=== PATIENT | male | born 1995 | race Hispanic/Latino ===

== ENCOUNTER 2018-09-25 13:09 | Emergency (ER) | payer OTHER ==
[2018-09-25 13:46] VITALS: BMI 26.7
[2018-09-25] MEDS ORDERED: TDAP Vaccine 0.5 mL Syr IM ONE (13:55)
[2018-09-25 14:25] LABS: BASO # 0.02 K/mm3 (0.0-2.0); BASO % 0.2 % (0.0-3.0); EOS # 0.1 (0.0-0.7); EOS % 1.1 % (1.5-5.0); HEMOGLOBIN 14.1 g/dL (14.0-18.0); LYMPH # 2.7 (1.2-3.4); LYMPH % 32.2 % (22.0-35.0); MEAN CELL VOLUME 89.6 fl (80.0-105.0); MEAN CORPUSCULAR HEMOGLOBIN 30.1 pg (25.0-35.0); MEAN CORPUSCULAR HGB CONC 33.6 g/dl (31.0-37.0); MEAN PLATELET VOLUME 9.2 fl (7.0-11.0); MONO # 0.3 (0.1-0.6); MONO % 3.9 % (1.0-6.0); RBC 4.69 10^6/uL (3.5-6.1); RED CELL DISTRIBUTION WIDTH 12.7 % (11.5-14.5); WHITE BLOOD COUNT 8.2 10^3/uL (4.5-11.0)
[2018-09-25 14:37] LABS: ALB/GLOB RATIO 1.2 (1.1-1.8); ALBUMIN 4.5 g/dL (3.0-4.8); ALT/SGPT 43 U/L (7-56); AST/SGOT 40 U/L (17-59); BLOOD UREA NITROGEN 10 mg/dL (7-21); GFR NON-AFRICAN AMERICAN > 60
[2018-09-25 14:40] LABS: ACETAMINOPHEN < 10.0 ug/ml (10.0-20.0); SALICYLATE < 1 mg/dL (2.0-20.0)
[2018-09-25 14:48] LABS: TROPONIN I < 0.01 ng/mL
[2018-09-25 15:41] LABS: PH,URINE 6.5 (4.7-8.0); URINE BILIRUBIN NEGATIVE (NEGATIVE); URINE BLOOD NEGATIVE (NEGATIVE); URINE GLUCOSE (UA) NEGATIVE (NEGATIVE); URINE LEUKOCYTE ESTERASE NEGATIVE Leu/uL (NEGATIVE); URINE PROTEIN NEGATIVE mg/dL (<30 mg/dL); URINE UROBILINOGEN 0.2 E.U./dL (<1 E.U./dL)
[2018-09-25 16:11] LABS: URINE APPEARANCE CLEAR (CLEAR); URINE COLOR YELLOW (YELLOW)
[2018-09-25 16:13] LABS: BARBITURATES, UR NEGATIVE (NEGATIVE); BENZODIAZEPINES, UR NEGATIVE (NEGATIVE); OPIATES, UR NEGATIVE (NEGATIVE); PHENCYCLIDINE, UR NEGATIVE (NEGATIVE)
--- NOTE | 2018-09-25 16:30 | ED PDOC ---
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 Pt unwilling to tell me why he hurt himself, but has been telling family that he "does not want to be on this earth anymore" over the last few days. Admits to drinking alcohol today, denies drug use. Last suicide attempt was in May when he was admitted to [facility] for 3 days after cutting his wrists and taking pills, and discharged. Family states that patient is supposed to followup with a psychiatrist outpatient but is non compliant. Denies falls, fever, chills, chest pain, SOB, abdominal pain, N/V/D, cough, back pain, or any other associated complaints. HPI and ROS limited secondary to patient's uncooperative nature. Past Medical History - Psychiatric Hx Depression: No Hx Emotional Abuse: No Hx Physical Abuse: No Hx Substance Use: No - Suicidal Assessment Feels Threatened In Home Enviroment: No Family/Social History Family/Social History: No Known Family HX Smoking Status: Unknown If Ever Smoked Hx Alcohol Use: No Hx Substance Use: No Hx Substance Use Treatment: No Allergies/Home Meds Allergies/Adverse Reactions: Allergies No Known Allergies Allergy (Verified 07/26/12 10:07) Home Medications: Home Meds Medication Instructions Recorded Confirmed Atenolol 25 mg PO 07/26/12 07/26/12 Review of Systems - Review of Systems Constitutional: Normal. absent: Fevers Eyes: Normal. absent: Photophobia ENT: Normal. absent: Sore Throat, Sinus Congestion Respiratory: Normal. absent: SOB, Cough Cardiovascular: Normal. absent: Chest Pain, Palpitations, Syncope Gastrointestinal: Normal. absent: Abdominal Pain, Nausea, Vomiting Genitourinary Male: Normal. absent: Dysuria, Frequency Musculoskeletal: Normal. absent: Back Pain, Neck Pain Skin: Laceration Neurological: Normal. absent: Headache, Dizziness, Focal Weakness Endocrine: Normal Hemo/Lymphatic: Normal Psychiatric: Depression, Suicidal Ideation Physical Exam - Physical Exam Physical Exam Limitations: Uncooperative Vital Signs Reviewed: Yes Vital Signs Temp Pulse Resp BP Pulse Ox 09/25/18 13:12 98.2 F 100 H 18 138/77 98 Temperature: Afebrile Blood Pressure: Normal Pulse: Regular Respiratory Rate: Normal Appearance: Positive for: Well-Appearing, Non-Toxic, Comfortable Pain Distress: None Mental Status: Positive for: Alert and Oriented X 3, Agitated - Systems Exam Head: Present: Atraumatic, Normocephalic Pupils: Present: PERRL Extroacular Muscles: Present: EOMI Conjunctiva: Present: Normal Mouth: Present: Moist Mucous Membranes Neck: Present: Normal Range of Motion. No: Meningeal Signs, MIDLINE TENDERNESS, Paraspinal Tenderness Respiratory/Chest: Present: Clear to Auscultation, Good Air Exchange. No: Respiratory Distress, Accessory Muscle Use Cardiovascular: Present: Regular Rate and Rhythm, Normal S1, S2, Peripheal Pulses Present. No: Murmurs Abdomen: Present: Normal Bowel Sounds. No: Tenderness, Distention, Peritoneal Signs, Rebound, Guarding Back: Present: Normal Inspection. No: CVA Tenderness, Midline Tenderness, Paraspinal Tenderness Upper Extremity: Present: Normal ROM, NORMAL PULSES, Neurovascularly Intact, Capillary Refill < 2s, Other (4cm vertical laceration to volar wrist with minor incomplete tendon laceration; patient has FROM of all digits and is able to make a fist without difficulty. Full strength.). No: Cyanosis, Edema, Temperature Abnormalties Lower Extremity: Present: Normal Inspection, NORMAL PULSES, Normal ROM, N eurovascularly Intact, Capillary Refill < 2 s. No: Edema, Temperature Abnormalties Neurological: Present: GCS=15, CN II-XII Intact, Speech Normal, Motor Func Grossly Intact, Normal Sensory Function, Gait Normal Skin: Present: Warm, Dry, Normal Color, Laceration (left wrist, 4cm vertical laceration with tendon involvement. Small amount active bleeding. No FB or debris visualized). No: Rashes Lymphatic: No: Cervical Adenopathy Psychiatric: Present: Alert, Oriented x 3, Suicidal Ideation Medical Decision Making ED Course and Treatment: Initial Plan: * CBC, CMP * Alcohol, Salicylate, Acetaminophen * Troponin * EKG * CXR * PES Eval * Tdap * Lac repair * 1:1 Alcohol 293 Labs otherwise unremarkable EKG shows incomplete LBBB, last EKG is from 2011. Troponin negative. Pt asymptomatic. Dr. Merida aware, no acute intervention. 14:[address] Baltazar regarding laceration. Advises to close skin layer and instruct patient to followup within [address] merida aware of conversation and agrees with plan. 15:45 Patient attempted to elope from emergency department, attempt to attack staff. Code muniz called. Restraints ordered for patient safety and risk for elopement. 16:10 Patient calm and comfortable in restraints. Pending sobriety for PES evaluation. 17:00 Patient continues to be uncooperative for laceration repair. Continuously pulling arm away when touched. Will order sedation for patient and provider safety. Sedation ordered for patient safety secondary to agitation. 5mg Haldol, 2mg Ativan. 19:00 Laceration repaired with 6 sutures simple interrupted, 3-0 nylon. Wound edges well approximated and hemostasis achieved. Pt tolerated procedure well.Wound dressed with bacitracin and sterile non stick dressing by EMT. 19:33 Restraint order revised to 2 point restraints for sitter and patient safety. Patient resting comfortably in stretcher, mild agitation when aroused. States he "does not want to be here". 20:00 Patient care signed out to Benoit Garcia PA-C pending CXR, PES evaluation and disposition. Sutures will need removed in 10-14 days with earlier return for signs of infection including worsening pain, redness, swelling, tenderness. Patient will need to continue Keflex q6h x 1 week and followup with Dr. Baltazar within 2 weeks for revision of laceration repair secondary to tendon involvement. Patient sleeping soundly in stretcher at this time with stable vital signs. 1:[address] - Lab Interpretations Lab Results: Troponin I < 0.01 ng/mL 09/25/18 14:11 Total Bilirubin 0.2 mg/dL (0.2-1.3) 09/25/18 14:11 AST 40 U/L (17-59) 09/25/18 14:11 ALT 43 U/L (7-56) 09/25/18 14:11 Alkaline Phosphatase 137 U/L (38-126) H 09/25/18 14:11 Total Protein 8.4 g/dL (5.8-8.3) H 09/25/18 14:11 Albumin 4.5 g/dL (3.0-4.8) 09/25/18 14:11 Globulin 3.9 gm/dL 09/25/18 14:11 Albumin/Globulin Ratio 1.2 (1.1-1.8) 09/25/18 14:11 Urine Color Yellow (YELLOW) 09/25/18 15:30 Urine Appearance Clear (CLEAR) 09/25/18 15:30 Urine pH 6.5 (4.7-8.0) 09/25/18 15:30 Ur Specific [place] 1.015 (1.005-1.035) 09/25/18 15:30 Urine Protein Negative mg/dL (<30 mg/dL) 09/25/18 15:30 Urine Glucose (UA) Negative mg/dL (NEGATIVE) 09/25/18 15:30 Urine Ketones Negative mg/dL (NEGATIVE) 09/25/18 15:30 Urine Blood Negative (NEGATIVE) 09/25/18 15:30 Urine Nitrate Negative (NEGATIVE) 09/25/18 15:30 Urine Bilirubin Negative (NEGATIVE) 09/25/18 15:30 Urine Urobilinogen 0.2 E.U./dL (<1 E.U./dL) 09/25/18 15:30 Ur Leukocyte Esterase Negative Steve/uL (NEGATIVE) 09/25/18 15:30 09/25/18 14:11 09/25/18 14:11 Lab Results 09/25/18 15:30: Urine Opiates Screen Negative, Urine Methadone Screen Negative, Ur Barbiturates Screen Negative, Ur Phencyclidine Scrn Negative, Ur Amphetamines Screen Negative, U Benzodiazepines Scrn Negative, U Oth Cocaine Metabols Neg ative, U Cannabinoids Screen Negative 09/25/18 15:30: Urine Color Yellow, Urine Appearance Clear, Urine pH 6.5, Ur Specific [place] 1.015, Urine Protein Negative, Urine Glucose (UA) Negative, Urine Ketones Negative, Urine Blood Negative, Urine Nitrate Negative, Urine Bilirubin Negative, Urine Urobilinogen 0.2, Ur Leukocyte Esterase Negative 09/25/18 14:11: Alcohol, Quantitative 293 H 09/25/18 14:11: Salicylates < 1 L, Acetaminophen < 10.0 L 09/25/18 14:11: Sodium 143, Potassium 3.8, Chloride 105, Carbon Dioxide 26, Anio n Gap 15, BUN 10, Creatinine 0.8, Est GFR ( Amer) > 60, Est GFR (Non-Af Amer) > 60, Random Glucose 102, Calcium 9.0, Total Bilirubin 0.2, AST 40, ALT 43, Alkaline Phosphatase 137 H, Troponin I < 0.01, Total Protein 8.4 H, Albumin 4.5, Globulin 3.9, Albumin/Globulin Ratio 1.2 09/25/18 14:11: WBC 8.2, RBC 4.69, Hgb 14.1, Hct 42.0, MCV 89.6, MCH 30.1, MCHC 33.6, RDW 12.7, Plt Count 281, MPV 9.2, Neut % (Auto) 62.6, Lymph % (Auto) 32.2, Maury % (Auto) 3.9, Eos % (Auto) 1.1 L, Baso % (Auto) 0.2, Lymph # (Auto) 2.7, Maury # (Auto) 0.3, Eos # (Auto) 0.1, Baso # (Auto) 0.02, Absolute Neuts (auto) 5.14 I have reviewed the lab results: Yes - RAD Interpretation Radiology Orders: 09/25/18 13:45 CHEST PORTABLE [RAD] Stat - EKG Interpretation EKG Interpretation (Text): Rate 80; NSR, incomplete LBBB; Normal Intervals; No STEMI, nonspecific ST/T changes Interpreted by ED Physician: Yes Type: 12 lead EKG - Medication Orders Current Medication Orders: Discontinued Medications Tetanus/Reduced Diphtheria/Acell Pertussis (Boostrix Vaccine Inj) 0.5 ml IM .ONCE ONE Stop: 09/25/18 13:56 Procedure: Wound Repair - Time Performed Time Performed: 19:00 - Time Out Time Out: Side verified, Site verified, Patient ID confirmed, Sterile procedures obs. - Consent Obtained Consent obtained: Verbal - Performed by Performed by: Mid-level Provider - Indications Indication(s):: Laceration - Location Location:: Left, Volar, Wrist Shape:: Linear Dimensions Length cm: 4 Depth:: Muscle - Anesthetic Technique Anesthetic Technique: Local Local/Regional Anesthetic:: Lidocaine 2% - Debris Debris:: None - Irrigated Irrigated with ml of normal saline: 1000 - Complexity Complexity:: Simple (one layer) - Wound repair method Sutures:: # (6), Size (3-0), Type (nylon), Technique (simple interrupted) - Complications Complications: None - Patient tolerated procedure Patient Tolerated Procedure:: Well Disposition/Present on Arrival - Present on Arrival Any Indicators Present on Arrival: No History of DVT/PE: No History of Uncontrolled Diabetes: No Urinary Catheter: No History of Decub. Ulcer: No History Surgical Site Infection Following: None - Disposition Have Diagnosis and Disposition been Completed?: No Diagnosis: Suicide attempt Disposition Time: 20:00 Patient Problems: Current Active Problems Problem Status Onset Suicide attempt Acute Condition: GUARDED Referrals: Nevaeh Baltazar MD [Staff Provider] - Follow up with primary Forms: [employer] (Northern Irish)
[2018-09-25] MEDS ORDERED: Lidocaine 2% Inj (20ml) IJ STA (16:33)
[2018-09-25] MEDS ORDERED: Bacitracin 500 Units/gm Oint Foilpak UD TOP ONE (16:34)
--- NOTE | 2018-09-25 16:35 | CARD ---
APPROVED REPORT Date of service: 09/25/2018 EKG Measurement Heart [id number] <Conclusion> Normal sinus rhythm Incomplete left bundle branch block Borderline ECG
--- NOTE | 2018-09-26 05:23 | ED PDOC ---
Physical Exam Vital Signs Temp Pulse Resp BP Pulse Ox 09/25/18 22:58 74 20 106/59 L 98 09/25/18 22:00 63 18 106/63 100 09/25/18 19:46 89 18 132/71 99 09/25/18 13:12 98.2 F 100 H 18 138/77 98 Medical Decision Making ED Course and Treatment: 09/26/18 02:00 Case endorsed to me by TARA Garcia, pending PES evaluation and disposition. Pt initially seen by TARA Barrera with Dr. Odom. Pt, whose past medical history includes alcohol abuse, depression, and past suicide attempts, presented for left wrist laceration s/p suicide attempt today.Patient had been treated earlier and had been sedated for agitation delaying PES evaluation. 09/26/18 05:25 Pt seen and evaluated by PES screener Coco, who discussed case with psychiatrist telephone order dispatcher. Pt to be screened by [facility] for involuntary psychiatric admission. 09/26/18 07:[address] Snyder, pending [facility] PES screen and disposition. - Lab Interpretations Lab Results: Troponin I < 0.01 ng/mL 09/25/18 14:11 Total Bilirubin 0.2 mg/dL (0.2-1.3) 09/25/18 14:11 AST 40 U/L (17-59) 09/25/18 14:11 ALT 43 U/L (7-56) 09/25/18 14:11 Alkaline Phosphatase 137 U/L (38-126) H 09/25/18 14:11 Total Protein 8.4 g/dL (5.8-8.3) H 09/25/18 14:11 Albumin 4.5 g/dL (3.0-4.8) 09/25/18 14:11 Globulin 3.9 gm/dL 09/25/18 14:11 Albumin/Globulin Ratio 1.2 (1.1-1.8) 09/25/18 14:11 Urine Color Yellow (YELLOW) 09/25/18 15:30 Urine Appearance Clear (CLEAR) 09/25/18 15:30 Urine pH 6.5 (4.7-8.0) 09/25/18 15:30 Ur Specific [place] 1.015 (1.005-1.035) 09/25/18 15:30 Urine Protein Negative mg/dL (<30 mg/dL) 09/25/18 15:30 Urine Glucose (UA) Negative mg/dL (NEGATIVE) 09/25/18 15:30 Urine Ketones Negative mg/dL (NEGATIVE) 09/25/18 15:30 Urine Blood Negative (NEGATIVE) 09/25/18 15:30 Urine Nitrate Negative (NEGATIVE) 09/25/18 15:30 Urine Bilirubin Negative (NEGATIVE) 09/25/18 15:30 Urine Urobilinogen 0.2 E.U./dL (<1 E.U./dL) 09/25/18 15:30 Ur Leukocyte Esterase Negative Steve/uL (NEGATIVE) 09/25/18 15:30 - RAD Interpretation Radiology Orders: 09/25/18 13:45 CHEST PORTABLE [RAD] Stat - Medication Orders Current Medication Orders: Discontinued Medications Bacitracin (Bacitracin) 1 ea TOP ONCE ONE Stop: 09/25/18 16:35 Last Admin: 09/25/18 17:50 Dose: 1 ea Cephalexin Monohydrate (Keflex) 500 mg PO STAT STA; Protocol Stop: 09/25/18 20:15 Haloperidol Lactate (Haldol) 5 mg IM STAT STA; Protocol Stop: 09/25/18 17:02 Last Admin: 09/25/18 17:51 Dose: 5 mg IM Administration Charges Document 09/25/18 17:51 EQ (Rec: 09/25/18 17:51 EQ [id number]) Injection Site MAR Injection Site Right Vastus Lateralis Charges for Administration # of IM Administrations 1 Lidocaine HCl (Lidocaine 2% 20ml Vial) 20 ml IJ ONCE STA Stop: 09/25/18 16:34 Lorazepam (Ativan) 2 mg IM ONCE ONE; Protocol Stop: 09/25/18 17:02 Last Admin: 09/25/18 17:50 Dose: 2 mg IM Administration Charges Document 09/25/18 17:50 EQ (Rec: 09/25/18 17:50 EQ [id number]) Injection Site MAR Injection Site Right Vastus Lateralis Charges for Administration # of IM Administrations 1 Tetanus/Reduced Diphtheria/Acell Pertussis (Boostrix Vaccine Inj) 0.5 ml IM .ONCE ONE Stop: 09/25/18 13:56 Last Admin: 09/25/18 17:51 Dose: 0.5 ml Immunization Registry Document 09/25/18 17:51 EQ (Rec: 09/25/18 17:51 EQ [id number]) [facility]-Date provided 09/25/18 Disposition/Present on Arrival - Present on Arrival Any Indicators Present on Arrival: No History of DVT/PE: No History of Uncontrolled Diabetes: No Urinary Catheter: No History of Decub. Ulcer: No History Surgical Site Infection Following: None - Disposition Have Diagnosis and Disposition been Completed?: No Diagnosis: Suicide attempt, Wrist laceration Disposition Time: 07:00 Patient Problems: Current Active Problems Problem Status Onset Suicide attempt Acute Wrist laceration Acute Condition: GUARDED Referrals: Nevaeh Baltazar MD [Staff Provider] - Follow up with primary Forms: [employer] (Slovenian)
[2018-09-26] MEDS ORDERED: DiphenhydrAMINE 50 mg/ml Inj IM PRN (09:20)
[2018-09-26] MEDS: Multivitamin With Minerals Tab PO SCH (10:58)
--- NOTE | 2018-09-26 12:30 | CON ---
DATE: 09/26/2018 HISTORY OF PRESENT ILLNESS: In short, the patient is a 23-year-old male with reported history of bipolar disorder, alcohol use disorder. The patient has previous suicidal attempts as well as alcohol drinking. The patient has being admitted to [facility] involuntary commitment in 05/2018. At this time, the patient was brought in for evaluation of possible status post suicidal attempt. The patient was making statement to his family that he does not want to live any longer and the patient was making hopeless statements as well as was making statements such as "I am not going to be any ones problem anymore." The patient also cut his left wrist and that is why he was brought to the hospital. During the emergency room visit, the patient was agitated, tried to elope three times. The patient needed to be medicated with Ativan, Haldol and needed to be in restraint because of aggression and agitation and the patient was posing risk to self and others. During the emergency room evaluation from PAS worker, psychiatrist on-call recommended [facility] screening process. Screening took place today at the morning time by Aminta, and the patient was found to be committable and at the present moment, the patient will be awaiting for bed to be available. This filing writer tried to evaluate the patient at the morning time. The patient appears to be irritable and annoyed, not willing to participate in interview. Yes/no answers only. The patient seems to be guarded. The patient reported that he tried to kill himself, but he changed his mind because "it does not worth it." The patient reported being depressed. During the interview, the patient denied thoughts of harming himself or others, but this is doubtful. The patient does not want to stay in the hospital probably that is why he is providing inconsistent stories. The patient denied that he is using any drugs or alcohol, but based on the history, the patient has problem with alcohol addiction. The patient denied hearing voices, denied seeing things, denied paranoid ideation. The patient reported that he feels his medications at [facility] pharmacy. We will try to call [facility] pharmacy now and confirm medication, but based on the history, family said that the patient was not following up with outpatient psychiatrist and not taking any medications. VITAL SIGNS: Reviewed. Temperature is 98.2, pulse is 80, blood pressure 126/77, respirations 18, oxygen saturation is 100. MEDICATIONS: Medications reviewed. The patient needed to be medicated with Haldol and Ativan. We will put orders in the computer just in case of agitation. LABORATORY DATA: Labs reviewed. Chemistry reviewed. Urinalysis reviewed. Toxicology, alcohol was 293 at the time of emergency room visit. Previous history reviewed. The patient had only one visit in 2011 for chest pain in the emergency room, was discharged within less than 24 hours. MENTAL STATUS EXAMINATION: Mental status examination is as this filing writer described above. The patient is a healthy-looking muscle built young gentleman. Intermittent eye contact. Poor personal hygiene. lacerations on his left forearms. The patient also has multiple tattoos. The patient appears to be annoyed and irritable. Mood described as depressed. Affect was angry and irritable. Mood incongruent. Thought process seems to be concrete. Thought content, the patient denied visual, auditory, or tactile hallucinations. Denied paranoid ideation. The patient appears to be guarded, but not responding to internal stimuli. Due to during this filing writer visit, the patient denied thoughts of harming himself or others, but this is doubtful most likely the patient is secretive and does not want to stay in the hospital. Insight and judgment seems to be very poor. Impulses are unpredictable. IMPRESSION: As per history, bipolar disorder, alcohol use disorder. The patient was intoxicated. PLAN: The patient was screened by [facility]. The patient was found to be committable. The patient is waiting for bed to be available. Meanwhile, we will call to the [facility] pharmacy, [place] and we will confirm the medications. The patient might benefit from as-needed medication, which will be Haldol, Benadryl, and Ativan because the patient is very strong, muscle built, tried to elope three times during the nighttime as per nursing report. We will follow up and advise accordingly. The patient is waiting for [facility] transfer. Thank you very much for letting me participate in care of your patient. Should you have any questions,give me a call back. Vandana Rivera MD
--- NOTE | 2018-09-26 14:16 | RAD ---
Date of service: 09/25/2018 HISTORY: PES COMPARISON: No prior. FINDINGS: LUNGS: No active pulmonary disease. PLEURA: No significant pleural effusion identified, no pneumothorax apparent. CARDIOVASCULAR: No atherosclerotic calcification present Normal. OSSEOUS STRUCTURES: No significant abnormalities. VISUALIZED UPPER ABDOMEN: Normal. OTHER FINDINGS: None. IMPRESSION: No active disease.
--- NOTE | 2018-09-26 18:36 | ED PDOC ---
Physical Exam Vital Signs Temp Pulse Resp BP Pulse Ox 09/26/18 18:20 85 18 144/83 99 09/26/18 16:08 108 H 18 124/74 98 09/26/18 14:15 82 18 134/83 97 09/26/18 12:40 71 18 129/89 97 09/26/18 09:30 78 18 128/74 98 09/26/18 06:00 69 18 126/77 100 09/26/18 04:30 80 18 126/77 100 09/26/18 00:30 72 18 110/78 100 09/25/18 22:58 74 20 106/59 L 98 09/25/18 22:00 63 18 106/63 100 09/25/18 19:46 89 18 132/71 99 09/25/18 13:12 98.2 F 100 H 18 138/77 98 Medical Decision Making ED Course and Treatment: Signed out to me at change of shift pending [facility] screening. Patient was screened and accepted for admission at [facility] and is now awaiting bed availability. Will sign out to ED night team at change of shift. Patient will require follow up with Dr. Baltazar for lacerations in 1 week. - Lab Interpretations Lab Results: Troponin I < 0.01 ng/mL 09/25/18 14:11 Total Bilirubin 0.2 mg/dL (0.2-1.3) 09/25/18 14:11 AST 40 U/L (17-59) 09/25/18 14:11 ALT 43 U/L (7-56) 09/25/18 14:11 Alkaline Phosphatase 137 U/L (38-126) H 09/25/18 14:11 Total Protein 8.4 g/dL (5.8-8.3) H 09/25/18 14:11 Albumin 4.5 g/dL (3.0-4.8) 09/25/18 14:11 Globulin 3.9 gm/dL 09/25/18 14:11 Albumin/Globulin Ratio 1.2 (1.1-1.8) 09/25/18 14:11 Urine Color Yellow (YELLOW) 09/25/18 15:30 Urine Appearance Clear (CLEAR) 09/25/18 15:30 Urine pH 6.5 (4.7-8.0) 09/25/18 15:30 Ur Specific [place] 1.015 (1.005-1.035) 09/25/18 15:30 Urine Protein Negative mg/dL (<30 mg/dL) 09/25/18 15:30 Urine Glucose (UA) Negative mg/dL (NEGATIVE) 09/25/18 15:30 Urine Ketones Negative mg/dL (NEGATIVE) 09/25/18 15:30 Urine Blood Negative (NEGATIVE) 09/25/18 15:30 Urine Nitrate Negative (NEGATIVE) 09/25/18 15:30 Urine Bilirubin Negative (NEGATIVE) 09/25/18 15:30 Urine Urobilinogen 0.2 E.U./dL (<1 E.U./dL) 09/25/18 15:30 Ur Leukocyte Esterase Negative Steve/uL (NEGATIVE) 09/25/18 15:30 - RAD Interpretation Radiology Orders: 09/25/18 13:45 CHEST PORTABLE [RAD] Stat - Medication Orders Current Medication Orders: Cephalexin Monohydrate (Keflex) 500 mg PO Q8H MONSTER; Protocol Last Admin: 09/26/18 12:00 Dose: 500 mg Diphenhydramine HCl (Benadryl) 50 mg IM Q6H PRN PRN Reason: Agitation Diphenhydramine HCl (Benadryl) 50 mg PO Q6H PRN PRN Reason: agiation Gabapentin (Neurontin) 300 mg PO TID MONSTER; Protocol Last Admin: 09/26/18 16:07 Dose: 300 mg Haloperidol Lactate (Haldol) 5 mg IM Q6H PRN; Protocol PRN Reason: agitation/violence Lorazepam (Ativan) 2 mg PO Q6 PRN; Protocol PRN Reason: alcohol withdrawals/agitation Last Admin: 09/26/18 10:57 Dose: 2 mg Lorazepam (Ativan) 2 mg IM Q6H PRN PRN Reason: Agitation Multivitamins/Minerals (Therapeutic-M Tab) 1 tab PO DAILY MONSTER Last Admin: 09/26/18 10:58 Dose: 1 tab Zolpidem Tartrate (Ambien) 5 mg PO HS PRN; Protocol PRN Reason: Insomnia Discontinued Medications Bacitracin (Bacitracin) 1 ea TOP ONCE ONE Stop: 09/25/18 16:35 Last Admin: 09/25/18 17:50 Dose: 1 ea Cephalexin Monohydrate (Keflex) 500 mg PO STAT STA; Protocol Stop: 09/25/18 20:15 Haloperidol Lactate (Haldol) 5 mg IM STAT STA; Protocol Stop: 09/25/18 17:02 Last Admin: 09/25/18 17:51 Dose: 5 mg IM Administration Charges Document 09/25/18 17:51 EQ (Rec: 09/25/18 17:51 EQ [id number]) Injection Site MAR Injection Site Right Vastus Lateralis Charges for Administration # of IM Administrations 1 Lidocaine HCl (Lidocaine 2% 20ml Vial) 20 ml IJ ONCE STA Stop: 09/25/18 16:34 Lorazepam (Ativan) 2 mg IM ONCE ONE; Protocol Stop: 09/25/18 17:02 Last Admin: 09/25/18 17:50 Dose: 2 mg IM Administration Charges Document 09/25/18 17:50 EQ (Rec: 09/25/18 17:50 EQ [id number]) Injection Site MAR Injection Site Right Vastus Lateralis Charges for Administration # of IM Administrations 1 Tetanus/Reduced Diphtheria/Acell Pertussis (Boostrix Vaccine Inj) 0.5 ml IM .ONCE ONE Stop: 09/25/18 13:56 Last Admin: 09/25/18 17:51 Dose: 0.5 ml Immunization Registry Document 09/25/18 17:51 EQ (Rec: 09/25/18 17:51 EQ [id number]) [facility]-Date provided 09/25/18 Disposition/Present on Arrival - Present on Arrival Any Indicators Present on Arrival: No History of DVT/PE: No History of Uncontrolled Diabetes: No Urinary Catheter: No History of Decub. Ulcer: No History Surgical Site Infection Following: None - Disposition Have Diagnosis and Disposition been Completed?: Yes Diagnosis: Suicide attempt, Wrist laceration Disposition Time: 18:36 Patient Problems: Current Active Problems Problem Status Onset Suicide attempt Acute Wrist laceration Acute Condition: STABLE Referrals: Nevaeh Baltazar MD [Staff Provider] - Follow up with primary Forms: [employer] (Belarusian)
--- NOTE | 2018-09-26 19:11 | ED PDOC ---
Physical Exam Vital Signs Temp Pulse Resp BP Pulse Ox 09/26/18 18:20 85 18 144/83 99 09/26/18 16:08 108 H 18 124/74 98 09/26/18 14:15 82 18 134/83 97 09/26/18 12:40 71 18 129/89 97 09/26/18 09:30 78 18 128/74 98 09/26/18 06:00 69 18 126/77 100 09/26/18 04:30 80 18 126/77 100 09/26/18 00:30 72 18 110/78 100 09/25/18 22:58 74 20 106/59 L 98 09/25/18 22:00 63 18 106/63 100 09/25/18 19:46 89 18 132/71 99 09/25/18 13:12 98.2 F 100 H 18 138/77 98 Medical Decision Making ED Course and Treatment: 09/26/18 19:00 Case endorsed to me at change of shift by Dr. Snyder for pending [facility] bed availabi lity. Patient was screened and accepted for admission at [facility]. Patient requires follow up with Dr. Baltazar for lacerations in 1 week. - Lab Interpretations Lab Results: Troponin I < 0.01 ng/mL 09/25/18 14:11 Total Bilirubin 0.2 mg/dL (0.2-1.3) 09/25/18 14:11 AST 40 U/L (17-59) 09/25/18 14:11 ALT 43 U/L (7-56) 09/25/18 14:11 Alkaline Phosphatase 137 U/L (38-126) H 09/25/18 14:11 Total Protein 8.4 g/dL (5.8-8.3) H 09/25/18 14:11 Albumin 4.5 g/dL (3.0-4.8) 09/25/18 14:11 Globulin 3.9 gm/dL 09/25/18 14:11 Albumin/Globulin Ratio 1.2 (1.1-1.8) 09/25/18 14:11 Urine Color Yellow (YELLOW) 09/25/18 15:30 Urine Appearance Clear (CLEAR) 09/25/18 15:30 Urine pH 6.5 (4.7-8.0) 09/25/18 15:30 Ur Specific [place] 1.015 (1.005-1.035) 09/25/18 15:30 Urine Protein Negative mg/dL (<30 mg/dL) 09/25/18 15:30 Urine Glucose (UA) Negative mg/dL (NEGATIVE) 09/25/18 15:30 Urine Ketones Negative mg/dL (NEGATIVE) 09/25/18 15:30 Urine Blood Negative (NEGATIVE) 09/25/18 15:30 Urine Nitrate Negative (NEGATIVE) 09/25/18 15:30 Urine Bilirubin Negative (NEGATIVE) 09/25/18 15:30 Urine Urobilinogen 0.2 E.U./dL (<1 E.U./dL) 09/25/18 15:30 Ur Leukocyte Esterase Negative Steve/uL (NEGATIVE) 09/25/18 15:30 - RAD Interpretation Radiology Orders: 09/25/18 13:45 CHEST PORTABLE [RAD] Stat - Medication Orders Current Medication Orders: Cephalexin Monohydrate (Keflex) 500 mg PO Q8H MONSTER; Protocol Last Admin: 09/26/18 18:48 Dose: 500 mg Diphenhydramine HCl (Benadryl) 50 mg IM Q6H PRN PRN Reason: Agitation Diphenhydramine HCl (Benadryl) 50 mg PO Q6H PRN PRN Reason: agiation Gabapentin (Neurontin) 300 mg PO TID MONSTER; Protocol Last Admin: 09/26/18 18:47 Dose: 300 mg Haloperidol Lactate (Haldol) 5 mg IM Q6H PRN; Protocol PRN Reason: agitation/violence Lorazepam (Ativan) 2 mg PO Q6 PRN; Protocol PRN Reason: alcohol withdrawals/agitation Last Admin: 09/26/18 18:47 Dose: 2 mg Lorazepam (Ativan) 2 mg IM Q6H PRN PRN Reason: Agitation Multivitamins/Minerals (Therapeutic-M Tab) 1 tab PO DAILY MONSTER Last Admin: 09/26/18 10:58 Dose: 1 tab Zolpidem Tartrate (Ambien) 5 mg PO HS PRN; Protocol PRN Reason: Insomnia Discontinued Medications Bacitracin (Bacitracin) 1 ea TOP ONCE ONE Stop: 09/25/18 16:35 Last Admin: 09/25/18 17:50 Dose: 1 ea Cephalexin Monohydrate (Keflex) 500 mg PO STAT STA; Protocol Stop: 09/25/18 20:15 Haloperidol Lactate (Haldol) 5 mg IM STAT STA; Protocol Stop: 09/25/18 17:02 Last Admin: 09/25/18 17:51 Dose: 5 mg IM Administration Charges Document 09/25/18 17:51 EQ (Rec: 09/25/18 17:51 EQ [id number]) Injection Site MAR Injection Site Right Vastus Lateralis Charges for Administration # of IM Administrations 1 Lidocaine HCl (Lidocaine 2% 20ml Vial) 20 ml IJ ONCE STA Stop: 09/25/18 16:34 Lorazepam (Ativan) 2 mg IM ONCE ONE; Protocol Stop: 09/25/18 17:02 Last Admin: 09/25/18 17:50 Dose: 2 mg IM Administration Charges Document 09/25/18 17:50 EQ (Rec: 09/25/18 17:50 EQ [id number]) Injection Site MAR Injection Site Right Vastus Lateralis Charges for Administration # of IM Administrations 1 Tetanus/Reduced Diphtheria/Acell Pertussis (Boostrix Vaccine Inj) 0.5 ml IM .ONCE ONE Stop: 09/25/18 13:56 Last Admin: 09/25/18 17:51 Dose: 0.5 ml Immunization Registry Document 09/25/18 17:51 EQ (Rec: 09/25/18 17:51 EQ [id number]) [facility]-Date provided 09/25/18 - Transfer of Care Patient signed out to Dr:: daron pending transfer [facility] - Scribe Statement The provider has reviewed the documentation as recorded by the Scribe Dahlia Schuster. All medical record entries made by the Scribjohn were at my direction and personally dictated by me. I have reviewed the chart and agree that the record accurately reflects my personal performance of the history, physical exam, medical decision making, and the department course for this patient. I have also personally directed, reviewed, and agree with the discharge instructions and disposition. Disposition/Present on Arrival - Present on Arrival Any Indicators Present on Arrival: No History of DVT/PE: No History of Uncontrolled Diabetes: No Urinary Catheter: No History of Decub. Ulcer: No History Surgical Site Infection Following: None - Disposition Have Diagnosis and Disposition been Completed?: Yes Diagnosis: Suicide attempt, Wrist laceration Disposition: Transfer [facility] Disposition Time: 07:00 Condition: STABLE Referrals: Giovanny,Tansar N, MD [Staff Provider] - Follow up with primary Forms: [employer] (Turkish)
--- NOTE | 2018-09-27 11:07 | ED PDOC ---
Physical Exam Vital Signs Temp Pulse Resp BP Pulse Ox 09/27/18 07:38 98.2 F 78 20 133/75 98 09/27/18 05:08 72 16 132/76 98 09/27/18 01:32 78 14 132/74 99 09/26/18 22:46 78 12 129/78 95 09/26/18 19:36 98.2 F 82 16 148/62 100 09/26/18 18:20 85 18 144/83 99 09/26/18 16:08 108 H 18 124/74 98 09/26/18 14:15 82 18 134/83 97 09/26/18 12:40 71 18 129/89 97 09/26/18 09:30 78 18 128/74 98 09/26/18 06:00 69 18 126/77 100 09/26/18 04:30 80 18 126/77 100 09/26/18 00:30 72 18 110/78 100 09/25/18 22:58 74 20 106/59 L 98 09/25/18 22:00 63 18 106/63 100 09/25/18 19:46 89 18 132/71 99 09/25/18 13:12 98.2 F 100 H 18 138/77 98 Medical Decision Making ED Course and Treatment: 09/27/18 11:[address] Cody with patient pending acceptance and transfer to [facility] [place]. 09/27/18 15:35 Bed secured from [facility] with patient being transported via [facility] ambulance services. He is stable for discharge. - Lab Interpretations Lab Results: Troponin I < 0.01 ng/mL 09/25/18 14:11 Total Bilirubin 0.2 mg/dL (0.2-1.3) 09/25/18 14:11 AST 40 U/L (17-59) 09/25/18 14:11 ALT 43 U/L (7-56) 09/25/18 14:11 Alkaline Phosphatase 137 U/L (38-126) H 09/25/18 14:11 Total Protein 8.4 g/dL (5.8-8.3) H 09/25/18 14:11 Albumin 4.5 g/dL (3.0-4.8) 09/25/18 14:11 Globulin 3.9 gm/dL 09/25/18 14:11 Albumin/Globulin Ratio 1.2 (1.1-1.8) 09/25/18 14:11 Urine Color Yellow (YELLOW) 09/25/18 15:30 Urine Appearance Clear (CLEAR) 09/25/18 15:30 Urine pH 6.5 (4.7-8.0) 09/25/18 15:30 Ur Specific [place] 1.015 (1.005-1.035) 09/25/18 15:30 Urine Protein Negative mg/dL (<30 mg/dL) 09/25/18 15:30 Urine Glucose (UA) Negative mg/dL (NEGATIVE) 09/25/18 15:30 Urine Ketones Negative mg/dL (NEGATIVE) 09/25/18 15:30 Urine Blood Negative (NEGATIVE) 09/25/18 15:30 Urine Nitrate Negative (NEGATIVE) 09/25/18 15:30 Urine Bilirubin Negative (NEGATIVE) 09/25/18 15:30 Urine Urobilinogen 0.2 E.U./dL (<1 E.U./dL) 09/25/18 15:30 Ur Leukocyte Esterase Negative Steve/uL (NEGATIVE) 09/25/18 15:30 - RAD Interpretation Radiology Orders: 09/25/18 13:45 CHEST PORTABLE [RAD] Stat - Medication Orders Current Medication Orders: Cephalexin Monohydrate (Keflex) 500 mg PO Q8H MONSTER; Protocol Last Admin: 09/27/18 05:31 Dose: 500 mg Diphenhydramine HCl (Benadryl) 50 mg IM Q6H PRN PRN Reason: Agitation Diphenhydramine HCl (Benadryl) 50 mg PO Q6H PRN PRN Reason: agiation Gabapentin (Neurontin) 300 mg PO TID MONSTER; Protocol Last Admin: 09/26/18 18:47 Dose: 300 mg Haloperidol Lactate (Haldol) 5 mg IM Q6H PRN; Protocol PRN Reason: agitation/violence Lorazepam (Ativan) 2 mg PO Q6 PRN; Protocol PRN Reason: alcohol withdrawals/agitation Last Admin: 09/27/18 07:30 Dose: 2 mg Lorazepam (Ativan) 2 mg IM Q6H PRN PRN Reason: Agitation Multivitamins/Minerals (Therapeutic-M Tab) 1 tab PO DAILY MONSTER Last Admin: 09/26/18 10:58 Dose: 1 tab Zolpidem Tartrate (Ambien) 5 mg PO HS PRN; Protocol PRN Reason: Insomnia Discontinued Medications Bacitracin (Bacitracin) 1 ea TOP ONCE ONE Stop: 09/25/18 16:35 Last Admin: 09/25/18 17:50 Dose: 1 ea Cephalexin Monohydrate (Keflex) 500 mg PO STAT STA; Protocol Stop: 09/25/18 20:15 Haloperidol Lactate (Haldol) 5 mg IM STAT STA; Protocol Stop: 09/25/18 17:02 Last Admin: 09/25/18 17:51 Dose: 5 mg IM Administration Charges Document 09/25/18 17:51 EQ (Rec: 09/25/18 17:51 EQ [id number]) Injection Site MAR Injection Site Right Vastus Lateralis Charges for Administration # of IM Administrations 1 Lidocaine HCl (Lidocaine 2% 20ml Vial) 20 ml IJ ONCE STA Stop: 09/25/18 16:34 Lorazepam (Ativan) 2 mg IM ONCE ONE; Protocol Stop: 09/25/18 17:02 Last Admin: 09/25/18 17:50 Dose: 2 mg IM Administration Charges Document 09/25/18 17:50 EQ (Rec: 09/25/18 17:50 EQ [id number]) Injection Site MAR Injection Site Right Vastus Lateralis Charges for Administration # of IM Administrations 1 Tetanus/Reduced Diphtheria/Acell Pertussis (Boostrix Vaccine Inj) 0.5 ml IM .ONCE ONE Stop: 09/25/18 13:56 Last Admin: 09/25/18 17:51 Dose: 0.5 ml Immunization Registry Document 09/25/18 17:51 EQ (Rec: 09/25/18 17:51 EQ [id number]) [facility]-Date provided 09/25/18 Disposition/Present on Arrival - Present on Arrival Any Indicators Present on Arrival: No History of DVT/PE: No History of Uncontrolled Diabetes: No Urinary Catheter: No History of Decub. Ulcer: No History Surgical Site Infection Following: None - Disposition Have Diagnosis and Disposition been Completed?: Yes Diagnosis: Suicide attempt, Wrist laceration Disposition: Transfer [facility] [place] Disposition Time: 13:25 Patient Plan: Transfer To Condition: STABLE Discharge Instructions (ExitCare): Laceration Repair With Stitches (DC) Referrals: Nevaeh Baltazar MD [Staff Provider] - Follow up with primary Forms: [employer] (Syriac)
[2018-09-27] MEDS: Multivitamin With Minerals Tab PO SCH (11:31)
[2018-09-27 15:40] VITALS: BP 128/72; PULSE 86; RESP 20; TEMP 98.1; O2SAT 99
--- NOTE | 2018-09-27 21:20 | CON ---
DATE: 09/27/2018 HISTORY OF PRESENT ILLNESS: Patient is a 23-year-old male with a history of bipolar disorder, alcohol use disorder with prior suicide attempt who is currently in the ER pending transfer to [facility] involuntary admission. I reviewed Dr. Rivera's consultation and notes the patient was seen in the ER and generally has been in fairly good control for the last 12 to 24 hours though had previously been agitated and tried to elope on 3 occasions. He also required Haldol and Ativan p.r.n. during that time. At this time, he expresses remorse about his behaviors and suicidal statements. Denies having acute suicidal thoughts, but appears depressed, guarded, and superficial . Denies being in any acute discomfort and willing the patient to cooperative until transfer is accomplished to [facility]. Insight and judgement continues to be poor. Labs and vitals were reviewed. MEDICATIONS: Reviewed. The patient has Haldol and Ativan p.r.n. IMPRESSION: 1. Bipolar disorder by history. 2. Alcohol use disorder. PLAN: The patient is pending involuntary transfer to [facility]. He is currently awaiting for a bed to be available. We will continue with prescribed medications including Neurontin 300 t.i.d., Haldol, Benadryl, and Ativan p.r.n. as well as Ambien 5 mg at bedtime p.r.n. to help him sleep. The patient continues to be unpredictable and requires once more monitoring. Liu Villarreal MD
== END 2018-09-27 15:45 | disposition short-term general hospital (02) ==
LOC: ED 13:09
DX: S61.512A Laceration without foreign body of left wrist, initial encounter (principal); X78.9XXA Intentional self-harm by unspecified sharp object, initial encounter
CPT/HCPCS: 12002; 71045; 80053; 80320; 80324; 80329; 80345; 80346; 80349; 80353; 80358; 80361; 81003; 83992; 84484; 85025; 90471; 90715; 93005; 96372; 99285; J1630; J2060